=== PATIENT | male | born 1965 | race Caucasian/White ===

== ENCOUNTER 2022-05-29 22:49 | Inpatient (IN) | payer BC, OTHER ==
[2022-05-29] MEDS ORDERED: PROMETHAZINE INJ 25 MG/ML AMP ONE (23:15)
[2022-05-29] MEDS ORDERED: PANTOPRAZOLE 40 MG INJ ONE (23:17)
[2022-05-29] MEDS ORDERED: FENTANYL CITR 100 MCG/2 ML ONE (23:17)
[2022-05-29 23:36] LABS: Hematocrit 58.4 % (39.6-49.0); Lymphocytes % 6.9 % (15.3-44.8); MCV 85.4 fL (80-100); MPV 7.4 fL (7.6-11.3); RBC Red Blood Cell Count 6.84 M/uL (4.33-5.43)
[2022-05-29 23:37] LABS: Protime INR 1.05
[2022-05-29 23:48] LABS: SARS-CoV-2 Antigen Rapid Res Negative (Negative)
[2022-05-29 23:58] LABS: Albumin 4.4 g/dL (3.4-5.0); Bilirubin Direct 0.2 mg/dL (0-0.2); Bilirubin Total 0.9 mg/dL (0.2-1.0); Magnesium 2.4 mg/dL (1.8-2.4); Potassium 4.2 mmol/L (3.5-5.1); Protein, Total 8.2 g/dL (6.4-8.2); Troponin High Sensitivity 4.9 pg/mL (<58.9)
[2022-05-30] MEDS ORDERED: NA CHLORIDE 0.9% 2,000 ML ONE (00:12)
[2022-05-30] MEDS ORDERED: ONDANSETRON 4 MG/2 ML VIAL ONE (00:24)
--- NOTE | 2022-05-30 01:48 | ER ---
Nurse's Notes [facility] Name: Raphael Lares Age: 56 yrs Sex: Male : 1965 Arrival Date: 05/29/2022 Time: 22:53 Bed 16 Private MD: Diagnosis: Other intestinal obstruction;Polycythemia vera-aquired 2nd to testosterone supplementation Presentation: 05/29 23:06 Chief complaint: Patient states: "My stomach and into my chest has been hurting since 1 tw5 PM.". Coronavirus screen: Vaccine status: Patient reports receiving the 2nd dose of the covid vaccine. Moderna. Ebola Screen: Patient negative for fever greater than or equal to 101.5 degrees Fahrenheit, and additional compatible Ebola Virus Disease symptoms Patient denies exposure to infectious person. Patient denies travel to an Ebola-affected area in the 21 days before illness onset. Initial Sepsis Screen: Does the patient meet any 2 criteria? No. Patient's initial sepsis screen is negative. Does the patient have a suspected source of infection? No. Patient's initial sepsis screen is negative. Initial Sepsis Screen: Does the patient have a suspected source of infection? Yes: Acute abdominal pain. Risk Assessment: Do you want to hurt yourself or someone else? Patient reports no desire to harm self or others. Onset of symptoms was May 28, 2022 at 13:00. 23:06 Method Of Arrival: Ambulatory tw5 23:06 Acuity: CLARA 2 tw5 Triage Assessment: 23:07 General: Appears uncomfortable, Behavior is calm, cooperative, appropriate for age. tw5 Pain: Pain currently is 10 out of 10 on a pain scale. GI: Abdomen is. Historical: - Allergies: 23:07 No Known Allergies; tw5 - Home Meds: 23:07 None [Active]; tw5 - PMHx: 23:07 Diverticulitis; tw5 - PSHx: 23:07 colon resection; tw5 - Immunization history:: Flu vaccine is not up to date. - Social history:: Smoking status: Patient/guardian denies using tobacco, but has a distant history of tobacco abuse. Screenin:35 Abuse screen: Denies threats or abuse. Nutritional screening: No deficits noted. ke1 Tuberculosis screening: No symptoms or risk factors identified. Fall Risk None identified. Assessment: 23:35 GI: Bowel sounds present X 4 quads. Abd is soft Abd is non tender. ke1 05/30 00:20 GI: Reports nausea. ke1 03:50 Reassessment: report given to Bella PUCKETT. ke1 Vital Signs: 05/29 23:06 BP 165 / 110; Pulse 87; Resp 18; Temp 98.3; Pulse Ox 97% ; Weight 86.18 kg; Height 5 tw5 ft. 7 in. (170.18 cm); Pain 10/10; 23:25 Pulse Ox 87% on R/A; ke1 23:27 BP 124 / 87; Pulse 88; Resp 19; Temp 98.3; Pulse Ox 97% on 2 lpm NC; ke1 05/30 00:19 BP 150 / 102; Pulse 92; Resp 15; Temp 98.2(O); Pulse Ox 96% on 2 lpm NC; Pain 0/10; ke1 00:25 BP 120 / 75; Pulse 82; Resp 21; Pulse Ox 96% 2 lpm ; Pain 0/10; ke1 01:25 Pulse 88; Resp 18; Temp 98.2(O); Pulse Ox 97% on 2 lpm NC; ke1 03:47 BP 126 / 73; Pulse 84; Resp 19; Temp 98.2; Pulse Ox 98% on 2 lpm NC; ke1 05/29 23:06 Body Mass Index 29.76 (86.18 kg, 170.18 cm) tw5 ED Course: 05/29 22:53 Patient arrived in ED. ja2 22:54 Jennifer Hills FNP-C [facility]. snw 22:54 Ronny Bello DO is Attending Physician. snw 23:07 Triage completed. tw5 23:07 Arm band placed on. tw5 23:12 Marilyn Odom, RN is Primary Nurse. ke1 23:15 Inserted saline lock: 20 gauge in left antecubital area, using aseptic technique. ke1 23:33 SARS RAPID Sent. ke1 23:33 Lipase Sent. ke1 23:33 Troponin HS Sent. ke1 23:33 PT-INR Sent. ke1 23:33 LFT's Sent. ke1 23:33 Magnesium Sent. ke1 23:33 CBC with Diff Sent. ke1 23:33 Basic Metabolic Panel Sent. ke1 23:35 XRAY Chest (1 view) In Process Unspecified. EDMS 23:35 Bed in low position. Call light in reach. Side rails up X 1. ke1 23:55 Blood Culture Adult (2) Sent. ke1 23:55 Lipase Sent. ke1 05/30 01:10 CT Abd/Pelvis - IV Contrast Only In Process Unspecified. EDMS 01:46 Master Schreiber is Hospitalizing Provider. snw 03:44 No provider procedures requiring assistance completed. ke1 03:44 Patient admitted, IV remains in place. ke1 Administered Medications: 05/29 23:20 Drug: ProTONIX (pantoprazole) 40 mg Route: IVP; Site: left antecubital; ke1 23:26 Drug: fentaNYL (PF) 50 mcg Route: IVP; Site: left antecubital; ke1 23:32 CANCELLED (Physician Discretion): Phenergan (promethazine) 25 mg IM once ke1 23:33 Drug: Phenergan (promethazine) 25 mg Route: IVP; Site: left antecubital; ke1 05/30 00:17 Drug: NS 0.9% 1000 ml Route: IV; Rate: 125 ml/hr; Site: left antecubital; ke1 00:18 Drug: NS 0.9% 1000 ml Route: IV; Rate: 1 bolus; Site: left antecubital; ke1 Medication: 03:44 VIS not applicable for this client. ke1 Outcome: 01:47 Decision to Hospitalize by Provider. snw 03:44 Admitted to Med/surg accompanied by tech. ke1 03:44 Condition: stable 03:44 Instructed on the need for admit. 04:00 Patient left the ED. ke1 Signatures: Dispatcher [employer] EDJennifer Sauceda, BUSINESS DEVELOPMENT DIRECTOR-C BUSINESS DEVELOPMENT DIRECTOR-Csnw Sahvonne Israel Tiffany tw5 Marilyn Odom RN RN ke1
--- NOTE | 2022-05-30 01:48 | EDPHYS ---
Physician Documentation [facility] Name: Raphael Lares Age: 56 yrs Sex: Male : 1965 Arrival Date: 05/29/2022 Time: 22:53 Bed 16 Private MD: ED Physician Ronny Bello HPI: 05/29 23:03 This 56 yrs old Male presents to ER via Unassigned with complaints of Abdominal Pain, snw Chest Pain, Nausea. 23:03 The patient presents with abdominal pain abdominal distention. Onset: The snw symptoms/episode began/occurred suddenly, at 13:00. The symptoms radiate to chest. Associated signs and symptoms: Pertinent positives: nausea and vomiting. The symptoms are described as constant, shooting. Severity of pain: At its worst the pain was severe just prior to arrival. The patient has not experienced similar symptoms in the past. The patient has not recently seen a physician. no PCP, pt had colectomy for diverticulitis in the past. Historical: - Allergies: 23:07 No Known Allergies; tw5 - Home Meds: 23:07 None [Active]; tw5 - PMHx: 23:07 Diverticulitis; tw5 - PSHx: 23:07 colon resection; tw5 - Immunization history:: Flu vaccine is not up to date. - Social history:: Smoking status: Patient/guardian denies using tobacco, but has a distant history of tobacco abuse. ROS: 23:03 Eyes: Negative for injury, pain, redness, and discharge, ENT: Negative for injury, snw pain, and discharge, Neck: Negative for injury, pain, and swelling, Cardiovascular: Negative for chest pain, palpitations, and edema. 23:03 Respiratory: Negative for shortness of breath, cough, wheezing, and pleuritic chest pain. 23:03 Back: Negative for injury and pain, : Negative for injury, bleeding, discharge, and swelling, MS/Extremity: Negative for injury and deformity, Skin: Negative for injury, rash, and discoloration, Neuro: Negative for headache, weakness, numbness, tingling, and seizure, Psych: Negative for depression, anxiety, suicide ideation, homicidal ideation, and hallucinations. 23:03 Constitutional: Positive for body aches, malaise, poor PO intake. 23:03 Abdomen/GI: Positive for abdominal pain, nausea and vomiting, Negative for diarrhea. Exam: 23:01 Head/Face: Normocephalic, atraumatic. Eyes: Pupils equal round and reactive to light, snw extra-ocular motions intact. Lids and lashes normal. Conjunctiva and sclera are non-icteric and not injected. Cornea within normal limits. Periorbital areas with no swelling, redness, or edema. ENT: Nares patent. No nasal discharge, no septal abnormalities noted. Tympanic membranes are normal and external auditory canals are clear. Oropharynx with no redness, swelling, or masses, exudates, or evidence of obstruction, uvula midline. Mucous membranes moist. Neck: Trachea midline, no thyromegaly or masses palpated, and no cervical lymphadenopathy. Supple, full range of motion without nuchal rigidity, or vertebral point tenderness. No Meningismus. Chest/axilla: Normal chest wall appearance and motion. Nontender with no deformity. No lesions are appreciated. 23:01 Respiratory: Lungs have equal breath sounds bilaterally, clear to auscultation and percussion. No rales, rhonchi or wheezes noted. No increased work of breathing, no retractions or nasal flaring. 23:01 Back: No spinal tenderness. No costovertebral tenderness. Full range of motion. Skin: Warm, dry with normal turgor. Normal color with no rashes, no lesions, and no evidence of cellulitis. MS/ Extremity: Pulses equal, no cyanosis. Neurovascular intact. Full, normal range of motion. Neuro: Awake and alert, GCS 15, oriented to person, place, time, and situation. Cranial nerves II-XII grossly intact. Motor strength 5/5 in all extremities. Sensory grossly intact. Cerebellar exam normal. Normal gait. Psych: Awake, alert, with orientation to person, place and time. Behavior, mood, and affect are within normal limits. 23:01 Constitutional: The patient appears alert, awake, anxious, restless, uncomfortable. 23:01 Cardiovascular: Rate: tachycardic, Rhythm: regular, Pulses: no pulse deficits are appreciated. 23:01 Abdomen/GI: Inspection: distension, that is mild, in the right upper quadrant and left upper quadrant, Bowel sounds: diminished, in all quadrants, Palpation: moderate abdominal tenderness, in the right upper quadrant and left upper quadrant. Vital Signs: 23:06 BP 165 / 110; Pulse 87; Resp 18; Temp 98.3; Pulse Ox 97% ; Weight 86.18 kg; Height 5 tw5 ft. 7 in. (170.18 cm); Pain 10/10; 23:25 Pulse Ox 87% on R/A; ke1 23:27 BP 124 / 87; Pulse 88; Resp 19; Temp 98.3; Pulse Ox 97% on 2 lpm NC; ke1 1204 00:19 BP 150 / 102; Pulse 92; Resp 15; Temp 98.2(O); Pulse Ox 96% on 2 lpm NC; Pain 0/10; ke1 00:25 BP 120 / 75; Pulse 82; Resp 21; Pulse Ox 96% 2 lpm ; Pain 0/10; ke1 01:25 Pulse 88; Resp 18; Temp 98.2(O); Pulse Ox 97% on 2 lpm NC; ke1 03:47 BP 126 / 73; Pulse 84; Resp 19; Temp 98.2; Pulse Ox 98% on 2 lpm NC; ke1 12 23:06 Body Mass Index 29.76 (86.18 kg, 170.18 cm) tw5 MDM: 05/29 22:54 Patient medically screened. snw 05/30 00:51 Data reviewed: vital signs, nurses notes. Data interpreted: Pulse oximetry: on room air snw is 96 %. Interpretation: acceptable. Counseling: I had a detailed discussion with the patient and/or guardian regarding: the historical points, exam findings, and any diagnostic results supporting the discharge/admit diagnosis, lab results. 00:51 ED course: upon review of h/h, questioned pt re: steroid use. Pt has implanted pellets. snw 01:50 Response to treatment: the patient's symptoms have mildly improved after treatment. snw Physician consultation: Kym Bernal PA-C regarding admission, to the telemetry unit. would like admission per Dr. Master Schreiber. 05/29 23:01 Order name: Basic Metabolic Panel; Complete Time: 00:02 snw 05/29 23:01 Order name: CBC with Diff; Complete Time: 00:02 snw 05/29 23:01 Order name: LFT's; Complete Time: 00:02 snw 05/29 23:01 Order name: Magnesium; Complete Time: 00:02 snw 05/29 23:01 Order name: PT-INR; Complete Time: 00:02 snw 05/29 23:01 Order name: Troponin HS; Complete Time: 00:02 snw 05/29 23:01 Order name: XRAY Chest (1 view) snw 05/29 23:01 Order name: Lipase; Complete Time: 00:02 snw 05/29 23:01 Order name: Blood Culture Adult (2) snw 05/29 23:01 Order name: SARS RAPID; Complete Time: 00:02 snw 05/29 23:03 Order name: Urine Culture snw 05/29 23:03 Order name: Urine Microscopic Only snw 05/30 00:56 Order name: Ferritin; Complete Time: 01:33 2 05/29 23:01 Order name: EKG; Complete Time: 23:01 snw 05/29 23:01 Order name: Cardiac monitoring; Complete Time: 23:33 snw 05/29 23:01 Order name: EKG - Nurse/Tech; Complete Time: 23:33 snw 05/29 23:01 Order name: IV Saline Lock; Complete Time: 23:33 snw 05/29 23:01 Order name: Labs collected and sent snw 05/29 23:01 Order name: O2 Per Protocol; Complete Time: 23:33 snw 05/29 23:01 Order name: O2 Sat Monitoring; Complete Time: 23:33 snw 05/29 23:03 Order name: CT Abd/Pelvis - IV Contrast Only snw EC/03 23:05 Rate is 92 beats/min. Rhythm is regular. QRS [place] is Normal. MT interval is normal. QRS snw interval is normal. Clinical impression: Normal ECG. Administered Medications: 23:20 Drug: ProTONIX (pantoprazole) 40 mg Route: IVP; Site: left antecubital; ke1 23:26 Drug: fentaNYL (PF) 50 mcg Route: IVP; Site: left antecubital; ke1 23:32 CANCELLED (Physician Discretion): Phenergan (promethazine) 25 mg IM once ke1 23:33 Drug: Phenergan (promethazine) 25 mg Route: IVP; Site: left antecubital; ke1 05/30 00:17 Drug: NS 0.9% 1000 ml Route: IV; Rate: 125 ml/hr; Site: left antecubital; ke1 00:18 Drug: NS 0.9% 1000 ml Route: IV; Rate: 1 bolus; Site: left antecubital; ke1 Disposition: 03:33 Co-signature as Attending Physician, Ronny Bello DO I was immediately available on-site ms3 in the Emergency Department for consultation in the care of the patient. Disposition Summary: 05/30/22 01:47 Hospitalization Ordered Hospitalization Status: Inpatient Admission snw Provider: Master Schreiber snthompson Location: Telemetry/[facility] (Inpatient) snw Condition: Stable snw Problem: new snw Symptoms: are unchanged snw Bed/Room Type: Standard snw Room Assignment: 409(05/30/22 03:26) mw Diagnosis - Other intestinal obstruction snw - Polycythemia vera - aquired 2nd to testosterone supplementation snw Forms: - Medication Reconciliation Form snw - SBAR form snw Signatures: Dispatcher [employer] EDMS Haley Cox RN RN Jennifer Bullard, SATINDER-C MECHANICAL ASSEMBLY TECHNICIAN-CsnRonny Ryan DO DO ms3 Isa Ribeirofany tw5 Marilyn Odom RN RN ke1 Corrections: (The following items were deleted from the chart) 05/29 23:32 23:01 Phenergan (promethazine) 25 mg IM once ordered. snw ke1 05/30 03:26 01:47 snw mw
--- NOTE | 2022-05-30 02:15 | P.HP ---
Certification for Inpatient Patient admitted to: Inpatient With expected LOS: >2 Midnights Patient will require the following post-hospital care: None Practitioner: I am a practitioner with admitting privileges, knowledge of patient current condition, hospital course, and medical plan of care. Services: Services provided to patient in accordance with Admission requirements found in Title 42 Section 412.3 of the Code of Federal Regulations Patient History Date of Service: 05/30/22 Reason for admission: SBO History of Present Illness: Patient is a 56 year old male with past medical history of diverticulitis s/p colonic resection otherwise healthy who presented to the ED with complaints of abdominal pain. Last BM yesterday morning, last ate yesterday afternoon, states he is not passing gas. labs significant for WBC 15, hgb 20, cr 1.44. His CT showed "Multiple loops of dilated small bowel measuring up to 3.6 cm in diameter. Findings can be seen with ileus and obstruction." Has had several episodes of vomiting despite antiemetics but the vomiting has now resolved. Denies any history of SBOs. He is admitted for further management. Allergies No Known Allergies Allergy (Unverified 05/30/22 03:00) Home medications list reviewed: Yes - Past Medical/Surgical History Diabetic: No -: Diverticulitis -: Colon Resection Psychosocial/ Personal History: Patient is . - Family History Family History: Reviewed- Non-Contributory - Social History Smoking Status: Former smoker Alcohol use: Yes CD- Drugs: No Caffeine use: Yes Place of Residence: Home Review of Systems Gastrointestinal: Nausea, Vomiting, Abdominal Pain Physical Examination - Physical Exam General: Alert, In no apparent distress HEENT: Atraumatic, PERRLA, EOMI, Sclerae nonicteric Neck: Supple, 2+ carotid pulse no bruit, No LAD, Without JVD or thyroid abnormality Respiratory: Clear to auscultation bilaterally, Normal air movement Cardiovascular: Regular rate/rhythm, Normal S1 S2 Gastrointestinal: Hypoactive, Distended, Tenderness Musculoskeletal: No tenderness Integumentary: No rashes Neurological: Normal speech, Normal strength at 5/5 x4 extr, Normal tone, Normal affect - Studies Laboratory Data (last 24 hrs) 05/29/22 23:21: PT 11.5, INR 1.05 05/29/22 23:21: WBC 15.00 H, Hgb 20.0 H, Hct 58.4 H, Plt Count 230 12/03/22 23:21: Sodium 135 L, Potassium 4.2, BUN 18, Creatinine 1.44 H, Glucose 216 H, Magnesium 2.4, Total Bilirubin 0.9, AST 25, ALT 38, Alkaline Phosphatase 72, Lipase 239 Assessment and Plan - Problems (Diagnosis) (1) Small bowel obstruction Current Visit: Yes Status: Acute (2) Polycythemia vera Current Visit: Yes Status: Chronic (3) SANIYA (acute kidney injury) Current Visit: Yes Status: Acute - Plan NPO. General surgery consult. IV hydration NGT if patient continues to vomit. Has since resolved. Supportive measures with antiemetics and pain medications. Elevated hemoglobin secondary to testosterone use. Monitor and replete electrolytes per protocol. Reconcile and continue home medications when appropriate VTE prophylaxis Full code Discharge Plan: Home Plan to discharge in: Greater than 2 days - Advance Directives Does patient have a Living Will: No Does patient have a Durable POA for Healthcare: No - Code Status/Comfort Care Code Status Assessed: Yes Code Status: Full Code Physician Review: Patient Assessed, Agree with Above Assessment and Plan Critical Care: No Time Spent Managing Pts Care (In Minutes): 50
[2022-05-30] MEDS: NA CHLORIDE 0.9% 1,000 ML IV SCH ×4 (03:00→19:36)
[2022-05-30] MEDS ORDERED: PROMETHAZINE INJ 25 MG/ML AMP IM PRN (03:00)
[2022-05-30] MEDS ORDERED: MORPHINE 4 MG/ML SYR IV PRN (03:00)
[2022-05-30 05:06] VITALS: BMI 29.6
[2022-05-30 06:45] LABS: Urine Bilirubin NEGATIVE (Negative); Urine Blood Negative (Negative); Urine Clarity Clear (Clear); Urine Color Light-Yellow (Yellow); Urine Glucose 3+ (Negative); Urine Mucus Slight /HPF (None Seen); Urine Protein TRACE (Negative); Urine RBC <5 /HPF (None Seen); Urine Urobilinogen Normal (Normal)
[2022-05-30 06:47] LABS: Specific Gravity > 1.030 (1.005-1.030)
--- NOTE | 2022-05-30 13:50 | RAD REPORT ---
EXAM DESCRIPTION: RAD - Abdomen 1 View (KUB) - 05/30/2022 1:23 pm CLINICAL HISTORY: Follow up SBO COMPARISON: Abdomen Pelvis W Contrast dated 05/30/2022 FINDINGS: A few prominent nonspecific small bowel loops are present. Air and stool are present in no ndilated colon. Stomach is not dilated. No free air or pneumatosis. Small bowel pattern appears to ebasley ve slightly improved from the earlier CT study. No suspicious calcifications. No significant bony findings IMPRESSION: Small bowel pattern appears to have improved since the CT study done earlier in the day.
--- NOTE | 2022-05-30 14:55 | P.PN ---
Date of Service: 05/30/22 Patient seen and examined. He denies any complaint. He denies any abdominal pain or nausea. No vomiting since admission. He request to go home. KUB demonstrates significant improvement in the SBO pattern. Patient started on clear liquid diet. Will monitor response and hopefully discharge later today.
--- NOTE | 2022-05-30 20:38 | CON ---
Date of Consultation: 05/30/2022 Diagnosis: Small bowel obstruction. History Of Present Illness: This is a case of a 56-year-old patient who comes to us with abdominal p ain, nausea, and vomiting. The patient came overnight, admitted to the hospital with small bowel obs truction and a surgical consult was obtained. The patient has history of a sigmoid colectomy for per forated sigmoid colon about 13 years ago that required colectomy and at that moment, the patient stat ed that he had an anastomosis, but the anastomosis failed and they had to go back emergently to the [facility] and give him a colostomy. Subsequently several months later, they brought him back to surgery and did reversal of colostomy. He has been okay for the last 13 years. In the last few weeks, he has be en noted to be more eating on the and little bit less picky about his food and then he dev eloped these symptoms last night. He think he knows he got a stew with a lot of vegetables in it and he did not think he chew it properly, leading to this, that is his belief. Even though his surgery was done 13 years ago and he had a colonoscopy after that, he has not had a colonoscopy more than 10 years. We reminded him that regardless of his previous surgery, screening for colon cancer should be done and we told him whether this problem improved, he should have his colonoscopy done. Review of Systems: See H and P above. Denies any melena, any hematochezia. Allergies: NONE. Medical Problems: None. Past Medical History: Diverticulitis. Past Surgical History: See above. Social History: He does not smoke. He does not drink alcohol. Physical Examination: General: The patient is awake, alert. HEENT: Pupils are equal and reactive. Anicteric. Neck: Supple. Chest: Clear. Heart: S1, S2. Abdomen: Soft and depressible. Midline incision and also left upper quadrant incision from previous surgeries. No guarding or rebound at this moment. Extremities: Good capillary refill. Laboratory Data: Blood work shows WBC count of 15, hemoglobin of 20. CAT scan of the abdomen and pe lvis, official report is still pending, although preliminary shows small bowel loops, cannot rule out obstruction. Assessment: This is a 56-year-old patient with a possible small-bowel obstruction. Patient feels be tter today. Abdomen is softer. He is passing some gas. X-rays was done recently shows some improve ment, so from the surgical standpoint, hopefully, conservative treatment works, although he was advis ed the importance of colonoscopy. The importance of taking his time eating and chewing his food prop erly. If he continue with this improvement, he may try some diet. If it gets worse, he understands the options of laparotomy possible bowel resection. NIRMALA/ELI Voice ID: [id number] Report ID: [id number]
[2022-05-30 23:31] VITALS: O2SAT 96
[2022-05-31 03:52] LABS: Absolute Lymphocytes (CBC) 2.1 K/uL (0.7-4.9); Hematocrit 52.9 % (39.6-49.0); Lymphocytes % 20.2 % (15.3-44.8); MCV 86.7 fL (80-100); MPV 7.1 fL (7.6-11.3)
[2022-05-31 03:59] LABS: Magnesium 2.3 mg/dL (1.8-2.4); Phosphorus 2.1 mg/dL (2.5-4.9)
[2022-05-31] MEDS: NA CHLORIDE 0.9% 1,000 ML IV SCH (04:19)
[2022-05-31] MEDS: POTASS/SODIUM PHOSPHATE 1 PKT POWD.PACK PO SCH ×3 (04:19→06:18)
--- NOTE | 2022-05-31 07:55 | P.PN ---
Subjective Date of Service: 05/31/22 Chief Complaint: SBO Physical Examination - Vital Signs Temperature: 98.1 F Blood Pressure: 114/72 Pulse: 75 Respirations: 19 Pulse Ox (%): 96 Assessment And Plan Physician Review: Patient Assessed, Agree with Above Assessment and Plan
[2022-05-31 09:29] VITALS: BP 136/80; TEMP 98.2
--- NOTE | 2022-05-31 10:11 | RAD REPORT ---
EXAM DESCRIPTION: RAD - Abdomen 1 View (KUB) - 05/31/2022 9:45 am CLINICAL HISTORY: Abdominal pain. COMPARISON: Abdomen 1 View (KUB) dated 05/30/2022; Abdomen Pelvis W Contrast dated 05/30/2022 FINDINGS: Air is seen within nondilated colon down to the sigmoid level. A few prominent air-filled small bowel loops are present. KUB imaging does not have the appearance of small bowel obstruction. T here is been no progression since the May 30 study. No free air or pneumatosis. No suspicious mera cifications. No significant bony findings IMPRESSION: Continued improvement in the small bowel pattern since the CT study of May 30. Small bowel does not appear obstructed on today's study. No free air, pneumatosis or emergent finding .
--- NOTE | 2022-05-31 10:43 | P.DS ---
Admission Date: 05/30/22 Discharge Date: 05/31/22 Disposition: ROUTINE DISCHARGE Discharge Condition: FAIR Reason for Admission: SBO Consultations: General surgery-Dr. Owusu - Problems (1) SANIYA (acute kidney injury) Status: Acute (2) Small bowel obstruction Status: Acute (3) Polycythemia vera Status: Chronic Brief History of Present Illness: Patient is a 56 year old male with past medical history of diverticulitis s/p colonic resection otherwise healthy presented to the ED with complaints of abdominal pain. labs significant for WBC 15, hgb 20, cr 1.44. His CT showed "Multiple loops of dilated small bowel measuring up to 3.6 cm in diameter. Findings can be seen with ileus and obstruction. He had several episodes of vomiting despite antiemetics which later resolved. Denied any history of SBOs. He was admitted for further management. Hospital Course: Patient admitted to the medical floor and treated with supportive measures including IV fluid, antiemetics as needed. Electrolyte monitored and patient seen by general surgery Dr. Owusu who recommended medical management. He had a bowel movement and flatus. Repeat KUB x2 show significant improvement of the small bowel obstruction pattern. Patient tolerated diet advancement to full liquid. He ambulated with no issues. He had SANIYA which resolved with IV fluid hydration. Patient deemed clinically stable for discharge. Vital Signs/Physical Exam: Temp Pulse Resp BP Pulse Ox 98.2 F 75 16 136/80 96 05/31/22 08:00 05/31/22 08:00 05/31/22 08:00 05/31/22 08:00 05/31/22 08:00 General: Alert, In no apparent distress, Oriented x3 HEENT: Mucous membr. moist/pink Neck: JVD not distended Respiratory: Clear to auscultation bilaterally, Normal air movement Cardiovascular: No edema, Regular rate/rhythm, Normal S1 S2 Gastrointestinal: Normal bowel sounds, Soft and benign, Non-distended, No tenderness Musculoskeletal: No swelling Integumentary: No rashes, No cyanosis Neurological: Normal strength at 5/5 x4 extr Laboratory Data at Discharge: WBC 10.20 K/uL (4.3-10.9) 05/31/22 03:28 Hgb 17.6 g/dL (13.6-17.9) 05/31/22 03:28 Hct 52.9 % (39.6-49.0) H 05/31/22 03:28 Plt Count 187 K/uL (152-406) 05/31/22 03:28 PT 11.5 SECONDS (9.5-12.5) 05/29/22 23:21 INR 1.05 05/29/22 23:21 Sodium 135 mmol/L (136-145) L 05/31/22 03:28 Potassium 4.0 mmol/L (3.5-5.1) 05/31/22 03:28 BUN 12 mg/dL (7-18) 05/31/22 03:28 Creatinine 1.12 mg/dL (0.55-1.3) 05/31/22 03:28 Glucose 107 mg/dL (74-106) H 05/31/22 03:28 Phosphorus 2.1 mg/dL (2.5-4.9) L 05/31/22 03:28 Magnesium 2.3 mg/dL (1.8-2.4) 05/31/22 03:28 Total Bilirubin 0.9 mg/dL (0.2-1.0) 05/29/22 23:21 AST 25 U/L (15-37) 05/29/22 23:21 ALT 38 U/L (12-78) 05/29/22 23:21 Alkaline Phosphatase 72 U/L (45-117) 05/29/22 23:21 Lipase 239 U/L (73-393) 05/29/22 23:21 Home Medications: NK [No Home Meds] 05/30/22 Diet: AHA Activity: Ad dago Followup: Mirza Owusu MD [ACTIVE - CAN ADMIT] - NONE,NONE [Primary Care Provider] -
--- NOTE | 2022-05-31 11:22 | RAD REPORT ---
EXAM DESCRIPTION: RAD - Chest Single View - 05/29/2022 11:34 pm CLINICAL HISTORY: ABDOMINAL DISTENTION TECHNIQUE: Frontal view of the chest. COMPARISON: No relevant prior studies available. FINDINGS: Lungs: Right upper lung zone calcified granuloma. No focal consolidation. Pleural space: Unremarkable. No pneumothorax. Heart: Unremarkable. No cardiomegaly. Mediastinum: Unremarkable. Bones/joints: Unremarkable. IMPRESSION: No acute disease. Electronically signed by: Rosalie Linton MD 05/29/2022 11:54 PM [facility] Due to temporary technical issues with the PACS/Fluency reporting system, reports are being signed by the in house radiologists without review as a courtesy to insure prompt reporting. The interpreting radiologist is fully responsible for the content of the report.
--- NOTE | 2022-05-31 11:24 | RAD REPORT ---
EXAM DESCRIPTION: CT - Abdomen Pelvis W Contrast - 05/30/2022 6:55 am CLINICAL HISTORY: The patient is 56 years old and is Male; abdominal pain TECHNIQUE: Axial computed tomography images of the abdomen and pelvis with intravenous contrast. S agittal and coronal reformatted images were created and reviewed. This CT exam was performed using one or more of the following dose reduction techniques: automated exposure control, adjustment of t he mA and/or kV according to patient size, and/or use of iterative reconstruction technique. COMPARISON: No relevant prior studies available. FINDINGS: Lung bases: Unremarkable. No mass. No consolidation. ABDOMEN: Liver: Unremarkable. No mass. Gallbladder and bile ducts: Unremarkable. No calcified stones. No ductal dilation. Pancreas: Unremarkable. No mass. No ductal dilation. Spleen: Unremarkable. No splenomegaly. Adrenals: Unremarkable. No mass. Kidneys and ureters: 3.5 cm left renal sinus cyst. No hydronephrosis. Stomach and bowel: Multiple loops of dilated small bowel measuring up to 3.6 cm in diameter. Scattered colonic diverticula. Suggestion of postsurgical changes in the sigmoid colon. No mucosal thickening. PELVIS: Appendix: No findings to suggest acute appendicitis. Bladder: Unremarkable. Reproductive: Unremarkable as visualized. ABDOMEN and PELVIS: Intraperitoneal space: Unremarkable. No free air. No significant fluid collection. Bones/joints: No acute fracture. No dislocation. Soft tissues: Unremarkable. Vasculature: Unremarkable. No abdominal aortic aneurysm. Lymph nodes: Unremarkable. No enlarged lymph nodes. IMPRESSION: Multiple loops of dilated small bowel measuring up to 3.6 cm in diameter. Findings can be seen with ileus and obstruction. Electronically signed by: Kulwant Quijano MD 05/30/2022 1:52 AM [facility] Due to temporary technical issues with the PACS/Fluency reporting system, reports are being signed by the in house radiologists without review as a courtesy to insure prompt reporting. The interpreting radiologist is fully responsible for the content of the report.
--- NOTE | 2022-05-31 13:49 | EKG ---
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
== END 2022-05-31 11:28 | disposition home or self-care (01) | DRG 683 ==
LOC: ER 22:49 → ERHOLD 05-30 02:10 → 4TH 05-30 03:30
PROVIDERS: ADMIT Internal Medicine; ATTEND Internal Medicine
DX: N17.9 Acute kidney failure, unspecified (principal); K56.609 Unspecified intestinal obstruction, unspecified as to partial versus complete obstruction; D45 Polycythemia vera; K57.90 Diverticulosis of intestine, part unspecified, without perforation or abscess without bleeding; T38.7X5A Adverse effect of androgens and anabolic congeners, initial encounter
CPT/HCPCS: 36415; 71045; 74018; 74177; 80048; 80076; 81001; 82728; 83690; 83735; 84100; 84484; 85025; 85610; 87040; 87086; 87088; 87811; 93005; 96374; 96375; 99285; C9113; J2405; J2550; J3010; J7030; Q9967

== ENCOUNTER 2022-07-28 06:23 | Day surgery (SDC) | payer BC ==
[2022-07-28] MEDS ORDERED: Ringers Lactate 1,000 ML IV ONE (06:50)
[2022-07-28] MEDS ORDERED: LIDOCAINE 1% MPF 5 ML VIAL ONE (07:39)
[2022-07-28] MEDS ORDERED: propofoL 200 MG/20 ML VIAL IV ONE (07:39)
--- NOTE | 2022-07-28 08:07 | ENDO RPT ---
[address], [address] COLONOSCOPY PROCEDURE REPORT EXAM DATE: 07/28/2022 PATIENT NAME: Raphael Lares MR #: [id number] BIRTHDATE: 1965 ATTENDING: Mirza Owusu MD STATUS: outpatient DISPLAY SCREEN FABRICATOR: Leonor Cline RN and Shavonne Borja CST INDICATIONS: The patient is a 56 yr old Male here for a colonoscopy due to colon cancer screening PROCEDURE PERFORMED: Colonoscopy with hot biopsy polypectomy MEDICATIONS: Per Anesthesia. ESTIMATED BLOOD LOSS: None CONSENT: The patient understands the risks and benefits of the procedure and understands that these risks include, but are not limited to: sedation, allergic reaction, infection, perforation and/or bleeding. Alternative means of evaluation and treatment include, among others: physical exam, x-rays, and/or surgical intervention. The patient elects to proceed with this endoscopic procedure. DESCRIPTION OF PROCEDURE: During intra-op preparation period all mechanical medical equipment was checked for proper function. Hand hygiene and appropriate measures for infection prevention was taken. Procedure, possible complications, alternatives including, but not limited to possibility of bleeding, perforation, tear, infection, sepsis, need for surgery, need for blood transfusion, were explained to the patient. After the risks, benefits and alternatives of the procedure were thoroughly explained, Informed consent was verified, confirmed and timeout was successfully executed by the treatment team. The patient was placed in the left lateral position. A digital rectal exam was performed and revealed external hemorrhoids. After appropriate level of anesthesia, the scope was passed. The EC-[id number] ([id number]) endoscope was introduced through the anus and advanced to the cecum, which was identified by transillumination from the light source, the appendix, and the ileocecal valve. The quality of the prep was fair. The instrument was then slowly withdrawn as the colon was fully examined. Scope withdrawal time was . COLON FINDINGS: Diverticula was found in the descending colon. The opening was small. A sessile polyp was found in the rectum at apporoximately 15 cm fron anal verge. Retroflexed views revealed no abnormalities. The scope was then completely withdrawn from the patient and the procedure terminated. ADVERSE EVENTS: There were no complications. IMPRESSIONS: 1. Diverticula in the descending colon 2. Sessile polyp was found in the rectum; multiple biopsies were performed using hot forceps RECOMMENDATIONS: 1. await biopsy results 2. follow-up: office 1 week(s) 3. surgery or Endo for comp[lete excision after bx result obtained RECALL: for Colonoscopy, pending biopsy results. Mirza Owusu MD eSigned: Mirza Owusu MD 07/28/2022 8:06 AM cc: CPT CODES: ICD9 CODES: PATIENT NAME: Raphael Lares MR#: [id number]
[2022-07-28 08:57] VITALS: TEMP 97.4
[2022-07-28 09:02] VITALS: BP 119/72; O2SAT 97
== END 2022-07-28 08:45 | disposition home or self-care (01) ==
LOC: OR 06:23
PROVIDERS: ATTEND Surgery
PROC: 0DBP8ZX Excision of Rectum, Via Natural or Artificial Opening Endoscopic, Diagnostic (ICD-10-PCS; principal; 2022-07-28 07:30)
DX: Z12.11 Encounter for screening for malignant neoplasm of colon (principal); K64.4 Residual hemorrhoidal skin tags; K57.30 Diverticulosis of large intestine without perforation or abscess without bleeding; D12.7 Benign neoplasm of rectosigmoid junction
CPT/HCPCS: 88305; J2001; J2704; J7120

== ENCOUNTER 2023-04-12 01:35 | Observation (INO) | payer BC ==
[2023-04-12] MEDS ORDERED: NA CHLORIDE 0.9% 1,000 ML ONE (02:12)
[2023-04-12] MEDS ORDERED: ONDANSETRON 4 MG/2 ML VIAL ONE ×2 (02:12→05:54)
--- NOTE | 2023-04-12 02:35 | ER ---
Nurse's Notes [facility] Name: Raphael Lares Age: 57 yrs Sex: Male : 1965 Arrival Date: 04/12/2023 Time: 01:35 Bed 8 Private MD: Diagnosis: Vomiting;Abdominal pain, Generalized;Acute peptic ulcer, site unspecified, without hemorrhage or perforation Presentation: 04/12 01:45 Chief complaint: Patient states: ABD PAIN. N/V/D STARTED 3-4 HRS AGO. STATES HE HAS HAD jj7 A BOWEL OBSTRUCTION IN THE PAST AND IT FEELS JUST LIKE THAT. Coronavirus screen: At this time, the client does not indicate any symptoms associated with coronavirus-19. Ebola Screen: No symptoms or risks identified at this time. Initial Sepsis Screen: Does the patient meet any 2 criteria? No. Patient's initial sepsis screen is negative. Does the patient have a suspected source of infection? No. Patient's initial sepsis screen is negative. Risk Assessment: Do you want to hurt yourself or someone else? Patient reports no desire to harm self or others. Onset of symptoms was April 11, 2023 at 21:00. 01:45 Method Of Arrival: Wheelchair jj7 01:45 Acuity: CLARA 3 jj7 Triage Assessment: 01:45 General: Appears distressed, uncomfortable, Behavior is calm, cooperative, appropriate jj7 for age. Pain: Complains of pain in abdomen. GI: Reports lower abdominal pain, upper abdominal pain, diarrhea, nausea, vomiting. Historical: - Allergies: 02:18 No Known Allergies; jj7 - PMHx: 02:18 Diverticulitis; jj7 - PSHx: 02:18 colon resection; jj7 - Immunization history:: Adult Immunizations up to date, Client reports receiving the 2nd dose of the Covid vaccine. - Social history:: Smoking status: Patient denies any tobacco usage or history of. Patient uses alcohol, occasionally. Patient/guardian denies using street drugs. Screenin:45 [facility] ED Fall Risk Assessment (Adult) History of falling in the last 3 months, jj7 including since admission No falls in past 3 months (0 pts) Confusion or Disorientation No (0 pts) Intoxicated or Sedated No (0 pts) Impaired Gait No (0 pts) Mobility Assist Device Used No (0 pt) Altered Elimination No (0 pt) Score/Fall Risk Level 0 - 2 = Low Risk Oriented to surroundings, Maintained a safe environment, Educated pt \T\ family on fall prevention, incl call for assistance when getting out of bed. Abuse screen: Denies threats or abuse. Nutritional screening: No deficits noted. Tuberculosis screening: No symptoms or risk factors identified. Assessment: 01:45 Reassessment: SEE TRIAGE ASSESSMENT. jj7 Vital Signs: 01:45 BP 134 / 88; Pulse 95; Resp 17; Pulse Ox 99% ; Weight 86.18 kg; Height 5 ft. 7 in. ; jj7 Pain 8/10; 02:30 BP 135 / 86; Pulse 86; Resp 20; Pulse Ox 98% ; jj7 03:30 BP 129 / 82; Pulse 82; Resp 19; Pulse Ox 96% ; Pain 5/10; jj7 01:45 Body Mass Index 29.76 (86.18 kg, 170.18 cm) jj7 01:45 Pain Scale: Adult jj7 03:30 Pain Scale: Adult jj7 ED Course: 01:40 Patient arrived in ED. jj6 01:45 Arm band placed on right wrist. Patient placed in an exam room, on a stretcher. jj7 01:45 Patient has correct armband on for positive identification. Placed in gown. Bed in low jj7 position. Call light in reach. Side rails up X2. Adult w/ patient. Warm blanket given. 01:55 Inserted saline lock: 20 gauge in right forearm, using aseptic technique. Blood jj7 collected. 01:59 Nicanor Muñoz MD is Attending Physician. ace 02:05 CBC with Diff Sent. jj7 02:05 CMP Sent. jj7 02:05 Lipase Sent. jj7 02:05 PT-INR Sent. jj7 02:18 Triage completed. jj7 02:34 XRAY Chest (1 view) In Process Unspecified. EDMS 02:34 Master Schreiber is Hospitalizing Provider. ace 03:28 CT Abd/Pelvis - IV Contrast Only In Process Unspecified. EDMS 05:54 CBC with Automated Diff Sent. jj7 05:54 CBC with Automated Diff Sent. jj7 05:54 Magnesium Sent. jj7 05:54 Basic Metabolic Panel Sent. jj7 05:54 Basic Metabolic Panel Sent. jj7 05:54 CBC with Automated Diff Sent. jj7 05:54 Basic Metabolic Panel Sent. jj7 05:54 Basic Metabolic Panel Sent. jj7 05:54 Magnesium Sent. jj7 05:54 Magnesium Sent. jj7 05:54 Magnesium Sent. jj7 05:54 CBC with Automated Diff Sent. jj7 Administered Medications: 02:01 CANCELLED (Duplicate Order): ns0.45 % 1000 ml IV at bolus bolus ace 02:04 Drug: NS 0.9% IV 1000 ml IV at 1 bolus Per protocol; 1000 mL bolus Route: IV; Rate: 1 jj7 bolus; Site: right forearm; 03:22 Follow up: IV Status: Completed infusion jj7 02:06 Drug: Ondansetron IVP 4 mg IVP once; over 2 minutes Route: IVP; Site: right forearm; jj7 04:05 Drug: Famotidine IVP 20 mg IVP once; dilute with 10 mL 0.9% NaCl; give over 2 minutes jj7 Route: IVP; Site: right forearm; 04:05 Drug: NS 0.9% IV 1000 ml IV at 1 bolus Per protocol; 1000 mL bolus Route: IV; Rate: 1 jj7 bolus; Site: right forearm; 04:05 Drug: Piperacillin-Tazobactam IVPB 3.375 grams IVPB once over 60 mins; (mix in NS 100 jj7 mL) Route: IVPB; Infused Over: 60 mins; Site: right forearm; 05:49 Drug: Pantoprazole IVP 80 mg IVP once Route: IVP; Site: right forearm; jj7 05:49 Drug: HYDROmorphone IVP 1 mg IVP once Route: IVP; Site: right forearm; jj7 05:49 Drug: Ondansetron IVP 4 mg IVP once; over 2 minutes Route: IVP; Site: right forearm; jj7 05:54 Drug: NS 0.9% IV 1000 ml IV at 125 ml/hr continuous Route: IV; Rate: 125 ml/hr; Site: j right forearm; Medication: 01:45 VIS not applicable for this client. jj7 Outcome: 02:35 Decision to Hospitalize by Provider. ace 07:42 Patient left the ED. ld1 08:00 Patient left the ED. ld1 Signatures: Dispatcher [employer] EDMS Nicanor Muñoz MD MD cha Sims, Lauren, RN RN ld1 Missy Hassan jj6 Geeta Fernandez RN RN jj7 Corrections: (The following items were deleted from the chart) 02:30 02:18 General: Appears distressed, uncomfortable, Behavior is calm, cooperative, jj7 appropriate for age, j7 02:30 02:18 Pain: Complains of pain in abdomen j7 j7 02:30 02:18 GI: Reports lower abdominal pain, upper abdominal pain, diarrhea, nausea, jj7 vomiting, jj7 02:41 02:05 Troponin High Sensitivity+C.LAB.BRZ drawn and sent. j7 EDPA 02:41 02:05 PROBNP+C.LAB.BRZ drawn and sent. jj7 EDMS 02:41 02:05 MAGNESIUM+C.LAB.BRZ drawn and sent. j7 EDPA 05:49 05:48 Ondansetron IVP 4 mg IVP in right femoral j7 jj7
--- NOTE | 2023-04-12 02:36 | EDPHYS ---
Physician Documentation [facility] Name: Raphael Lares Age: 57 yrs Sex: Male : 1965 Arrival Date: 04/12/2023 Time: 01:35 Bed 8 Private MD: VIOLET Physician Nicanor Muñoz HPI: 04/12 02:27 This 57 yrs old Male presents to ER via Wheelchair with complaints of ace Nausea/Vomiting, Abdominal Pain. 02:27 The patient presents to the emergency department with nausea, vomiting, abdominal pain, ace of the right upper quadrant, left upper quadrant, right lower quadrant and left lower quadrant. Onset: The symptoms/episode began/occurred 99 day(s) ago. Possible causes: unknown. The symptoms are aggravated by nothing. The symptoms are alleviated by remaining still. Associated signs and symptoms: Pertinent positives: abdominal pain, nausea, vomiting. Severity of symptoms: At their worst the symptoms were moderate in the emergency department the symptoms are unchanged. The patient has experienced similar episodes in the past, several times. Historical: - Allergies: 02:18 No Known Allergies; jj7 - PMHx: 02:18 Diverticulitis; jj7 - PSHx: 02:18 colon resection; jj7 - Immunization history:: Adult Immunizations up to date, Client reports receiving the 2nd dose of the Covid vaccine. - Social history:: Smoking status: Patient denies any tobacco usage or history of. Patient uses alcohol, occasionally. Patient/guardian denies using street drugs. ROS: 02:30 Constitutional: Negative for fever, chills, and weight loss, Eyes: Negative for injury, ace pain, redness, and discharge, ENT: Negative for injury, pain, and discharge, Neck: Negative for injury, pain, and swelling, Cardiovascular: Negative for chest pain, palpitations, and edema, Respiratory: Negative for shortness of breath, cough, wheezing, and pleuritic chest pain, Back: Negative for injury and pain, : Negative for injury, bleeding, discharge, and swelling, MS/Extremity: Negative for injury and deformity, Skin: Negative for injury, rash, and discoloration, Neuro: Negative for headache, weakness, numbness, tingling, and seizure, Psych: Negative for depression, anxiety, suicide ideation, homicidal ideation, and hallucinations, Allergy/Immunology: Negative for hives, rash, and allergies, Endocrine: Negative for neck swelling, polydipsia, polyuria, polyphagia, and marked weight changes, Hematologic/Lymphatic: Negative for swollen nodes, abnormal bleeding, and unusual bruising, 02:30 Abdomen/GI: Positive for abdominal pain, nausea and vomiting, diarrhea, abdominal cramps, abdominal distension, of the right upper quadrant, left upper quadrant, right lower quadrant and left lower quadrant, Exam: 02:30 Constitutional: This is a well developed, well nourished patient who is awake, alert, ace and in no acute distress. Head/Face: Normocephalic, atraumatic. Eyes: Pupils equal round and reactive to light, extra-ocular motions intact. Lids and lashes normal. Conjunctiva and sclera are non-icteric and not injected. Cornea within normal limits. Periorbital areas with no swelling, redness, or edema. ENT: Nares patent. No nasal discharge, no septal abnormalities noted. Tympanic membranes are normal and external auditory canals are clear. Oropharynx with no redness, swelling, or masses, exudates, or evidence of obstruction, uvula midline. Mucous membranes moist. Neck: Trachea midline, no thyromegaly or masses palpated, and no cervical lymphadenopathy. Supple, full range of motion without nuchal rigidity, or vertebral point tenderness. No Meningismus. Chest/axilla: Normal chest wall appearance and motion. Nontender with no deformity. No lesions are appreciated. Cardiovascular: Regular rate and rhythm with a normal S1 and S2. No gallops, murmurs, or rubs. Normal PMI, no JVD. No pulse deficits. Respiratory: Lungs have equal breath sounds bilaterally, clear to auscultation and percussion. No rales, rhonchi or wheezes noted. No increased work of breathing, no retractions or nasal flaring. Back: No spinal tenderness. No costovertebral tenderness. Full range of motion. Male : Normal genitalia with no discharge or lesions. Skin: Warm, dry with normal turgor. Normal color with no rashes, no lesions, and no evidence of cellulitis. MS/ Extremity: Pulses equal, no cyanosis. Neurovascular intact. Full, normal range of motion. Neuro: Awake and alert, GCS 15, oriented to person, place, time, and situation. Cranial nerves II-XII grossly intact. Motor strength 5/5 in all extremities. Sensory grossly intact. Cerebellar exam normal. Normal gait. Psych: Awake, alert, with orientation to person, place and time. Behavior, mood, and affect are within normal limits. 02:30 Abdomen/GI: Inspection: distension, that is mild, Bowel sounds: high pitched, Palpation: mild abdominal tenderness, in all quadrants, Liver: no appreciated palpable abnormalities, Hernia: not appreciated, 02:30 Musculoskeletal/extremity: DVT Exam: No signs of deep vein thrombosis. no pain, no swelling, no tenderness, negative Homans' sign noted on exam, no appreciated bluish discoloration, no erythema, no increased warmth, 04:15 ECG was reviewed by the Attending Physician. [facility] Vital Signs: 01:45 BP 134 / 88; Pulse 95; Resp 17; Pulse Ox 99% ; Weight 86.18 kg; Height 5 ft. 7 in. ; jj7 Pain 8/10; 02:30 BP 135 / 86; Pulse 86; Resp 20; Pulse Ox 98% ; jj7 03:30 BP 129 / 82; Pulse 82; Resp 19; Pulse Ox 96% ; Pain 5/10; jj7 01:45 Body Mass Index 29.76 (86.18 kg, 170.18 cm) jj7 01:45 Pain Scale: Adult jj7 03:30 Pain Scale: Adult jj7 MDM: 01:59 Patient medically screened. [facility] 02:32 Differential diagnosis: Nonspecific abd pain, gastritis, cholecystitis, pancreatitis, ace appendicitis, diverticulitis, viral gastroenteritis, gastroenteritis. Differential Diagnosis altered mental status, sepsis. Data reviewed: vital signs, nurses notes, lab test result(s), EKG, radiologic studies, CT scan. Consideration of Admission/Observation Patient was admitted/placed on observation. Escalation of care including admission/observation considered. I considered the following discharge prescriptions or medication management in the emergency department Medications were administered in the Emergency Department. See MAR. Independent interpretation of the following test(s) in the Emergency Department EKG: See my EKG interpretation above. Test considered but Not performed: Ultrasound no abd usg. Historians other than the Patient: Spouse/Significant Other: , well informed. 04/12 01:57 Order name: CBC with Diff 7 04/12 01:57 Order name: CMP; Complete Time: 03:21 04/12 01:57 Order name: Lipase; Complete Time: 03:21 [facility] 04/12 02:01 Order name: PT-INR; Complete Time: 03:21 [facility] 04/12 02:42 Order name: Troponin High Sensitivity; Complete Time: 03:21 EDFL 04/12 02:42 Order name: NT PRO-BNP; Complete Time: 03:21 EDFL 04/12 02:42 Order name: Magnesium; Complete Time: 03:21 EDMS 04/12 02:56 Order name: Manual Differential EDMS 04/12 03:53 Order name: Basic Metabolic Panel EDMS 04/12 03:53 Order name: Basic Metabolic Panel EDMS 04/12 03:53 Order name: Basic Metabolic Panel EDMS 04/12 03:53 Order name: Basic Metabolic Panel EDMS 04/12 03:53 Order name: Basic Metabolic Panel EDMS 04/12 03:53 Order name: CBC with Automated Diff EDMS 04/12 03:53 Order name: CBC with Automated Diff EDMS 04/12 03:53 Order name: CBC with Automated Diff EDMS 04/12 03:53 Order name: CBC with Automated Diff EDMS 04/12 03:53 Order name: CBC with Automated Diff EDMS 04/12 03:53 Order name: Magnesium EDMS 04/12 03:53 Order name: Magnesium EDMS 04/12 03:53 Order name: Magnesium EDMS 04/12 03:53 Order name: Magnesium EDMS 04/12 03:53 Order name: Magnesium EDMS 04/12 07:58 Order name: CBC Smear Scan [facility] 04/12 02:01 Order name: XRAY Chest (1 view) [facility] 04/12 02:01 Order name: CT Abd/Pelvis - IV Contrast Only [facility] 04/12 02:01 Order name: EKG; Complete Time: 02:01 [facility] 04/12 03:52 Order name: CONS Physician Consult; Complete Time: 05:54 [facility] 04/12 01:57 Order name: IV Saline Lock; Complete Time: 01:57 [facility] 04/12 01:57 Order name: Labs collected and sent; Complete Time: 01:57 [facility] 04/12 02:01 Order name: Cardiac monitoring; Complete Time: 04:05 [facility] 04/12 02:01 Order name: EKG - Nurse/Tech; Complete Time: 04:05 [facility] 04/12 02:01 Order name: O2 Per Protocol; Complete Time: 04:05 ace 04/12 02:01 Order name: O2 Sat Monitoring; Complete Time: 04:05 ace EC:15 Rate is 81 beats/min. Rhythm is regular. QRS [place] is Normal. LA interval is normal. QRS ace interval is normal. QT interval is normal. No Q waves. T waves are Normal. No ST changes noted. Clinical impression: NSR w/ Non-specific ST/T Changes and No evidence of ischemia. Interpreted by me. Reviewed by me. Administered Medications: 02:01 CANCELLED (Duplicate Order): ns0.45 % 1000 ml IV at bolus bolus ace 02:04 Drug: NS 0.9% IV 1000 ml IV at 1 bolus Per protocol; 1000 mL bolus Route: IV; Rate: 1 jj7 bolus; Site: right forearm; 03:22 Follow up: IV Status: Completed infusion jj7 02:06 Drug: Ondansetron IVP 4 mg IVP once; over 2 minutes Route: IVP; Site: right forearm; jj7 04:05 Drug: Famotidine IVP 20 mg IVP once; dilute with 10 mL 0.9% NaCl; give over 2 minutes jj7 Route: IVP; Site: right forearm; 04:05 Drug: NS 0.9% IV 1000 ml IV at 1 bolus Per protocol; 1000 mL bolus Route: IV; Rate: 1 jj7 bolus; Site: right forearm; 04:05 Drug: Piperacillin-Tazobactam IVPB 3.375 grams IVPB once over 60 mins; (mix in NS 100 jj7 mL) Route: IVPB; Infused Over: 60 mins; Site: right forearm; 05:49 Drug: Pantoprazole IVP 80 mg IVP once Route: IVP; Site: right forearm; jj7 05:49 Drug: HYDROmorphone IVP 1 mg IVP once Route: IVP; Site: right forearm; jj7 05:49 Drug: Ondansetron IVP 4 mg IVP once; over 2 minutes Route: IVP; Site: right forearm; jj7 05:54 Drug: NS 0.9% IV 1000 ml IV at 125 ml/hr continuous Route: IV; Rate: 125 ml/hr; Site: jj7 right forearm; Disposition Summary: 10/17/23 02:35 Hospitalization Ordered Notes: Hospitalization Status: Inpatient Admission ace Provider: Master Schreiber cha Condition: Stable ace Problem: new ace Symptoms: have improved ace Bed/Room Type: Standard ace Location: Telemetry/MedSurg (Inpatient)(04/12/23 07:01) cg Room Assignment: 223(04/12/23 07:01) cg Diagnosis - Vomiting ace - Abdominal pain, Generalized ace - Acute peptic ulcer, site unspecified, without hemorrhage or perforation ace Forms: - Medication Reconciliation Form ace - SBAR form ace - Leadership Thank You Letter ace Signatures: Dispatcher [employer] EDMS Nicanor Muñoz MD MD cha Garcia, Cindy, RN RN Geeta Menjivar RN RN jj7 Corrections: (The following items were deleted from the chart) 02:01 01:58 NS IV 0.45 % 1000 ml IV at bolus bolus ordered. jj7 ace 02:41 02:01 MAGNESIUM+C.LAB.BRZ ordered. EDMS EDMS 02:41 02:01 PROBNP+C.LAB.BRZ ordered. EDMS EDMS 02:41 02:01 Troponin High Sensitivity+C.LAB.BRZ ordered. EDMS EDMS 03:55 02:35 Telemetry/MedSurg (Inpatient) ace cg 03:55 02:35 ace cg 07:01 03:55 [facility] ER HOLD cg cg 07:01 03:55 ERHOLD- cg cg
--- NOTE | 2023-04-12 02:40 | P.HP ---
Certification for Inpatient Patient admitted to: Inpatient With expected LOS: <2 Midnights Patient will require the following post-hospital care: None Practitioner: I am a practitioner with admitting privileges, knowledge of patient current condition, hospital course, and medical plan of care. Services: Services provided to patient in accordance with Admission requirements found in Title 42 Section 412.3 of the Code of Federal Regulations Patient History Date of Service: 04/12/23 Reason for admission: Abdominal pain History of Present Illness: 57-year-old male with a past medical history of diverticulitis presents to the emergency room with nausea vomiting, abdominal pain. Reports associated diarrhea. Reports abdominal pain located left upper quadrant, left lower quadrant. He reports symptoms started today. He reports history of diverticulitis with the resection. With Dr. Barraza. He reports occasional alcohol use, plan to admit for abdominal pain, nausea vomiting secondary to likely peptic ulcer disease. Laboratory evaluation leukocytosis 11.7 no early left shift 86.1 acute kidney injury BUN 26 creatinine 1.18, estimated GFR 71, lipase normal 66, CT of the abdomen pelvis mild wall thickening of the pylorus clinical correlate with peptic ulcer disease. Small pulmonary nodules left lower lobe largest 8 mm. Follow-up with a chest CT 18 to 24 months low risk for malignancy per the RADS guideline, consult GI, consult Dr. Owusu. Allergies No Known Allergies Allergy (Verified 07/28/22 07:07) Home Medications: NK [No Home Meds] 05/30/22 - Past Medical/Surgical History Diabetic: No -: Diverticulitis -: Colon Resection Psychosocial/ Personal History: Occasional alcohol use the beer. Patient is . - Social History Smoking Status: Never smoker Alcohol use: Yes CD- Drugs: No Caffeine use: Yes Place of Residence: Home Review of Systems 10-point ROS is otherwise unremarkable Physical Examination - Physical Exam General: Alert, In no apparent distress, Oriented x3 HEENT: Atraumatic, Normocephalic, PERRLA Neck: Supple, 2+ carotid pulse no bruit Respiratory: Clear to auscultation bilaterally, Normal air movement Cardiovascular: No edema, Normal pulses, Regular rate/rhythm Capillary refill: <2 Seconds Gastrointestinal: Normal bowel sounds, Soft and benign, Tenderness (Epigastric tenderness, left upper quadrant, left lower quadrant tenderness) Musculoskeletal: No clubbing, No swelling Integumentary: No rashes, No breakdown Neurological: Normal speech, Normal strength at 5/5 x4 extr - Studies Laboratory Data (last 24 hrs) 04/12/23 02:01 Magnesium Cancelled Assessment and Plan - Plan Assessment plan Nausea vomiting, acute Abdominal pain, acute Peptic ulcer disease, acute History of diverticulitis Acute kidney injury Leukocytosis Pulmonary nodule DVT prophylaxis Assessment plan Nausea vomiting Abdominal pain Peptic ulcer disease History of diverticulitis Surgery consult, GI consult IV fluids, IV antibiotics as needed analgesics, PPI laboratory evaluation 71, lipase normal 66, chest x-ray, leukocytosis 11.7 no early left shift 86.1 CT of the abdomen pelvis mild wall thickening of the pylorus clinical correlate with peptic ulcer disease. Small pulmonary nodules left lower lobe largest 8 mm. Follow-up with a chest CT 18 to 24 months low risk for malignancy per the RADS guideline, consult GI, consult Dr. Owusu. Acute kidney injury Leukocytosis Trend WBCs, trend kidney function Gentle IV fluids leukocytosis 11.7 no early left shift 86.1 acute kidney injury BUN 26 creatinine 1.18, estimated GFR Diet n.p.o. Full code DVT Discharge Plan: Home Plan to discharge in: 48 Hours - Advance Directives Does patient have a Living Will: No Does patient have a Durable POA for Healthcare: No - Code Status/Comfort Care Code Status: Full Code Physician Review: Patient Assessed, Agree with Above Assessment and Plan Critical Care: No Time Spent Managing Pts Care (In Minutes): 50
[2023-04-12 02:51] LABS: Protime INR 1.01
[2023-04-12 02:52] LABS: Absolute Lymphocytes (CBC) 0.8 K/uL (0.7-4.9); Hematocrit 50.3 % (39.6-49.0); MCV 86.6 fL (80-100); MPV 7.3 fL (7.6-11.3); Platelets 205 thou/uL (152-406)
[2023-04-12 03:06] LABS: Albumin 4.2 g/dL (3.4-5.0); Bilirubin Total 0.7 mg/dL (0.2-1.0); Magnesium 2.3 mg/dL (1.6-2.4); Troponin High Sensitivity 3.8 pg/mL (<58.9)
[2023-04-12] MEDS ORDERED: FAMOTIDINE 20 MG/2 ML VIAL IV ONE (03:50)
[2023-04-12] MEDS ORDERED: NA CHLORIDE 0.9% 100 ML ONE (03:50)
[2023-04-12] MEDS ORDERED: ONDANSETRON 4 MG/2 ML VIAL IV PRN (03:50)
[2023-04-12] MEDS ORDERED: NA CHLORIDE 0.9% 2,000 ML ONE (03:51)
[2023-04-12] MEDS ORDERED: PIPERACIL/TAZO 3.375 GM VIAL IV ONE (03:51)
[2023-04-12 04:47] LABS: Blood Morphology Comment NOT SEEN (NOT SEEN); Platelet Estimate ADEQ
[2023-04-12] MEDS ORDERED: PANTOPRAZOLE 40 MG INJ ONE (05:54)
[2023-04-12] MEDS ORDERED: HYDROMORPHONE HCL 1 MG/ML INJ ONE (05:54)
[2023-04-12 06:11] LABS: Absolute Lymphocytes (CBC) 0.5 K/uL (0.7-4.9); Lymphocytes % 6.8 % (15.3-44.8); MCV 86.7 fL (80-100); MPV 7.1 fL (7.6-11.3); Platelets 164 thou/uL (152-406)
[2023-04-12 06:19] LABS: Potassium 4.1 mEq/L (3.5-5.1)
[2023-04-12 07:57] LABS: Blood Morphology Comment NOT SEEN (NOT SEEN); Platelet Estimate ADEQ; White Blood Cell Scan OK (OK)
[2023-04-12 08:58] VITALS: O2SAT 96
[2023-04-12] MEDS: NA CHLORIDE 0.9% 1,000 ML IV SCH ×2 (09:25→17:20)
[2023-04-12 09:41] VITALS: BMI 29.2
[2023-04-12] MEDS: HYDROCODONE/APAP 5/325 MG TAB PO PRN ×2 (11:13→17:07)
[2023-04-12] MEDS: PIPER TAZO 3.375 GM in NA CHLORIDE 0.9% 100 ML IV SCH ×2 (11:13→20:49)
--- NOTE | 2023-04-12 11:18 | EKG ---
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
--- NOTE | 2023-04-12 11:18 | EKG ---
Test Date: 2023-04-12 Test Time: 04:02:12 Lan Engineer: ED MEASUREMENT RESULTS: Intervals: Rate: 81 NH: 154 QRSD: 90 QT: 378 QTc: 439 [place]: P: -3 NH: 154 QRS: -6 T: 6 INTERPRETIVE STATEMENTS: Normal sinus rhythm Normal ECG Compared to ECG 04/12/2023 03:59:30 No significant changes Electronically Signed On 04-12-23 11:17:20 CDT by Kurt Harris
--- NOTE | 2023-04-12 12:46 | CON ---
Date of Consultation: 04/12/2023 Reason For Service: Ileus versus small-bowel obstruction. History Of Present Illness: This is a case of a 57-year-old patient known by us. Several years ago, he had a perforated diverticulitis, have to receive emergent surgery with an ostomy. He was sent to [place], where he has reversal of his ostomy. He was okay for 13 years and then came back several m onths ago with, what look like, a small-bowel obstruction. At that moment, he was eating a lot of ve getables and he was instructed how to take care of this and how to eat properly and chew his food and select the food properly and he was doing great until last night. He was watching the [employer] baseball team and he was eating biscuit, having fun, talking, and he felt that he did not chewed food properly and then after that end out in ER overnight. He cannot recognize the proble m. Today, he feels better. He has been moving around. His bloating and abdominal pain got better. Surgical consult was obtained for evaluation. He had a last colonoscopy done not too long ago showi ng some benign polyps and premalignant, but not cancer and also diverticulum . Allergies: NONE. Prior Medical History: Diverticulitis, polyposis coli. Past Surgical History: Colon resection for perforated diverticulitis and then reversal of colostomy in [place]. Family History: Noncontributory. Review of Systems: See HPI. There was some nausea and bloating, but right now, feels better with no nausea, no vomiting , and no bloating. No dysuria, hematuria, hematochezia, or melena. No recent travel out of the [facility]. Physical Examination: General: The patient is awake and alert. HEENT: Pupils are equal and reactive. Anicteric. Neck: Supple. Chest: Clear. Heart: S1, S2. Abdomen: Soft and depressible. No guarding or rebound. No perineal signs. Rectal: Deferred. Extremities: Good capillary refill. Laboratory Data: Blood work shows WBC count of 11.7 with hemoglobin of 17 and platelets of 205 with potassium is 4 and creatinine is 1.8, BUN is 26, glucose 141. CAT scan of the abdomen and pelvis harrison ws multiple fluid-filled small bowel. No pneumatosis. Assessment: This is a 57-year-old patient with on and off bowel obstructions. He feels better now, so he want to try it once again. If he tolerates diet, I advised him to come to my office. We might have to do a small-bowel series. I also encouraged him to see his GI doctor for upper endoscopy sin ce there is some findings that may suggest peptic ulcer disease. In the previous CT scans, we notice d some lesions in the lungs and we advised him to see his lung doctor, he says he did and his lung sp ecialist is taking care of that, so he does not have to worry about that anymore. I advised him to bre gill that with his primary doctor. From the surgical standpoint, we are going to advance diet and then follow up in my office. If he does not improve, then we will proceed accordingly. NIRMALA/ELI Voice ID: [id number] Report ID: [id number]
--- NOTE | 2023-04-12 16:14 | RAD REPORT ---
EXAM DESCRIPTION: CT Abdomen and Pelvis With Intravenous Contrast CLINICAL HISTORY: The patient is 57 years old and is Male; ABD PAIN TECHNIQUE: Axial computed tomography images of the abdomen and pelvis with intravenous contrast. S agittal and coronal reformatted images were created and reviewed. This CT exam was performed using one or more of the following dose reduction techniques: automated exposure control, adjustment of t he mA and/or kV according to patient size, and/or use of iterative reconstruction technique. COMPARISON: Prior CT from May 29, 2022 is unavailable for comparison. FINDINGS: Lung bases: Small pulmonary nodules in the inferior left lower lobe, largest measuring 8 mm. ABDOMEN: Liver: Unremarkable. No mass. Gallbladder and bile ducts: Unremarkable. No calcified stones. No ductal dilation. Pancreas: No findings to suggest acute pancreatitis. No mass visualized. No ductal dilation. Spleen: Unremarkable. No splenomegaly. Adrenals: Unremarkable. No mass. Kidneys and ureters: Unremarkable. No solid mass. No hydronephrosis. Stomach and bowel: Fluid throughout the lumen of the small and large bowel. No definite bowel wal l thickening or pericolonic inflammation. No bowel dilatation or obstruction. PELVIS: Appendix: No findings to suggest acute appendicitis. Bladder: Unremarkable. No mass. Reproductive: Mild prostate gland enlargement. ABDOMEN and PELVIS: Intraperitoneal space: Unremarkable. No free air. No significant fluid collection. Bones/joints: No acute fracture. No dislocation. Soft tissues: Unremarkable. Vasculature: Unremarkable. No abdominal aortic aneurysm. Lymph nodes: Multiple bilateral inguinal lymph nodes, not pathologically enlarged. Other findings: Mild wall thickening in the pylorus. IMPRESSION: 1. Mild wall thickening in the pylorus. Correlate clinically for PUD. 2. Small pulmonary nodules in the inferior left lower lobe, largest measuring 8 mm. Per Fleischner Society Guidelines, recommend a non-contrast Chest CT at 3-6 months, then consider another non-contra st Chest CT at 18-24 months. If patient is low risk for malignancy, non-contrast Chest CT at 18-24 mo nths is optional. These guidelines do not apply to immunocompromised patients and patients with cancer. Follow up in pa tients with significant comorbidities as clinically warranted. For lung cancer screening, adhere to L stu-RADS guidelines. Reference: Radiology. 2017; 284(1):228-43. Electronically signed by: Erum Stanley MD 04/12/2023 4:54 AM CDT Due to temporary technical issues with the PACS/Fluency reporting system, reports are being signed by the in house radiologists without review as a courtesy to insure prompt reporting. The interpreting radiologist is fully responsible for the content of the report.
--- NOTE | 2023-04-12 17:57 | RAD REPORT ---
EXAM DESCRIPTION: XR Chest, 1 View CLINICAL HISTORY: The patient is 57 years old and is Male; ABDOMINAL DISTENTION TECHNIQUE: Frontal view of the chest. COMPARISON: No relevant prior studies available. FINDINGS: Lungs: No consolidation. Suggestion of one or more calcified granulomas. Pleural space: Unremarkable. No pneumothorax. Heart: Unremarkable. Mediastinum: Unremarkable. Bones/joints: No acute findings. IMPRESSION: No acute findings in the chest. Electronically signed by: Kulwant Quijano MD 04/12/2023 2:54 AM CDT Due to temporary technical issues with the PACS/Fluency reporting system, reports are being signed by the in house radiologists without review as a courtesy to insure prompt reporting. The interpreting radiologist is fully responsible for the content of the report.
[2023-04-12] MEDS ORDERED: CALCIUM CARBONATE CHEW 500MG TAB PO PRN (20:33)
[2023-04-13 03:46] LABS: Magnesium 2.4 mg/dL (1.6-2.4); Potassium 4.7 mEq/L (3.5-5.1)
[2023-04-13 03:47] LABS: Absolute Lymphocytes (CBC) 1.3 K/uL (0.7-4.9); Hematocrit 43.2 % (39.6-49.0); Lymphocytes % 24.7 % (15.3-44.8); MCV 86.9 fL (80-100); Platelets 160 thou/uL (152-406); RBC Red Blood Cell Count 4.98 M/uL (4.33-5.43)
[2023-04-13] MEDS: PIPER TAZO 3.375 GM in NA CHLORIDE 0.9% 100 ML IV SCH (04:29)
[2023-04-13] MEDS ORDERED: PIPERACIL/TAZO 3.375 GM VIAL IV ONE (04:35)
[2023-04-13] MEDS ORDERED: NA CHLORIDE 0.9% 100 ML ONE (04:37)
[2023-04-13 10:06] VITALS: BP 125/74; TEMP 98
--- NOTE | 2023-04-13 11:10 | P.DS ---
Admission Date: 04/12/23 Discharge Date: 04/13/23 Disposition: ROUTINE DISCHARGE Discharge Condition: FAIR Reason for Admission: Abdominal pain Brief History of Present Illness: 57-year-old male with a past medical history of diverticulitis presented to the emergency room with nausea vomiting, abdominal pain and diarrhea. Abdominal pain located left upper quadrant and left lower quadrant. He reports history of diverticulitis s/p bowel resection. He reported occasional alcohol use. 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 Laboratory evaluation leukocytosis 11.7 no early left shift 8 6.1, lipase normal 66, CT of the abdomen pelvis mild wall thickening of the pylorus clinical correlate with peptic ulcer disease. Small pulmonary nodules left lower lobe largest 8 mm. Patient admitted for abdominal pain, nausea vomiting and management of suspected peptic ulcer disease. Vital Signs/Physical Exam: Temp Pulse Resp BP Pulse Ox 98.0 F 71 16 125/74 94 04/13/23 08:00 04/13/23 08:00 04/13/23 08:00 04/13/23 08:00 04/13/23 08:00 Laboratory Data at Discharge: WBC 5.40 thou/uL (4.3-10.9) 04/13/23 03:09 Hgb 15.1 g/dL (13.6-17.9) 04/13/23 03:09 Hct 43.2 % (39.6-49.0) 04/13/23 03:09 Plt Count 160 thou/uL (152-406) 04/13/23 03:09 PT 11.1 SECONDS (9.5-12.5) 04/12/23 02:32 INR 1.01 04/12/23 02:32 Sodium 137 mEq/L (136-145) 04/13/23 03:09 Potassium 4.7 mEq/L (3.5-5.1) D 04/13/23 03:09 BUN 13 mg/dL (7-18) 04/13/23 03:09 Creatinine 1.10 mg/dL (0.70-1.30) 04/13/23 03:09 Glucose 105 mg/dL (74-106) 04/13/23 03:09 Magnesium 2.4 mg/dL (1.6-2.4) 04/13/23 03:09 Total Bilirubin 0.7 mg/dL (0.2-1.0) 04/12/23 02:32 AST 27 U/L (15-37) 04/12/23 02:32 ALT 39 U/L (16-61) 04/12/23 02:32 Alkaline Phosphatase 78 U/L (45-117) 04/12/23 02:32 Lipase 66 U/L (13-75) 04/12/23 02:32 Home Medications: Ciprofloxacin HCl [Cipro] 500 mg PO BID #10 tab 04/13/23 Metronidazole 500 mg PO TID #15 tab 04/13/23 Pantoprazole Sodium [Protonix] 40 mg PO DAILY #30 tab 04/13/23 New Medications: Ciprofloxacin HCl [Cipro] 500 mg PO BID #10 tab Metronidazole 500 mg PO TID #15 tab Pantoprazole Sodium [Protonix] 40 mg PO DAILY #30 tab Diet: Soft diet Activity: Ad dago Followup: Mirza Owusu MD [Primary Care Provider] - Byron Murray MD [ACTIVE - CAN ADMIT] -
== END 2023-04-13 10:45 | disposition home or self-care (01) ==
LOC: ER 01:35 → ERHOLD 03:48 → INTOOBSV 03:48 → 2ND 07:27
PROVIDERS: ADMIT Internal Medicine; ATTEND Internal Medicine
DX: R10.9 Unspecified abdominal pain (principal); R11.2 Nausea with vomiting, unspecified; R19.7 Diarrhea, unspecified; N17.9 Acute kidney failure, unspecified; K27.3 Acute peptic ulcer, site unspecified, without hemorrhage or perforation; D72.829 Elevated white blood cell count, unspecified; R91.1 Solitary pulmonary nodule
CPT/HCPCS: 96361; 93005 ×2; 85025 ×3; 80048 ×2; 36415 ×2; 83735 ×3; 85610; 84484; 83690; 80053; 83880; 74177; 71045; 96375; 96374; 99284; Q9967; J2543 ×4; C9113; J1170; J2405 ×2; J7030 ×3; G0378